=== PATIENT | female | born 1955 | race Native Hawaiian/Other Pacific Islander ===

== ENCOUNTER 2018-06-27 09:26 | Outpatient (CLI) | payer OTHER | END 2018-06-27 19:09 | disposition home or self-care (01) | LOC: MAMMO 09:26 | DX: Z12.31 Encounter for screening mammogram for malignant neoplasm of breast (principal) ==

== ENCOUNTER 2022-02-20 13:01 | Outpatient (CLI) | payer OTHER | END 2022-02-20 17:00 | disposition home or self-care (01) | LOC: MAMMO 13:01 | PROVIDERS: ATTEND Nurse Practitioner | DX: Z12.31 Encounter for screening mammogram for malignant neoplasm of breast (principal) ==